=== PATIENT | female | born 1955 | race Caucasian/White ===

== ENCOUNTER → 2018-03-17 15:12 | Outpatient (CLI) | payer OTHER, SELFPAY ==
--- NOTE | 2018-03-17 15:20 | MM_ITS ---
MM Dig screening mamm BI w/CAD ORDERING PHYSICIAN : Jean Rivers MD PATIENT AGE: 62 years GENDER: Female HISTORY: routine screening. No hormones. No new complaints. Noncontributory family history COMPARISON: Bilateral mammogram January 2012 & May 2008 TECHNIQUE: Routine Standard CC & MLO images were obtained. R2 CAD reviewed. FINDINGS: . Inhomogeneous breast with moderate asymmetry RIGHT BREAST:Round density labeled A at the inferior right breast have become apparent and warrants spot views and ultrasound. CAD highlights an area labeled B on the MLO view-this is most likely summation shadow which should be excluded as well with spot views and ultrasound survey. LEFT BREAST:Progression of several areas densities at the left breast since 2012 but most notable is the area labeled X which has 3 components on the MLO view spanning 16 mm. These require spot view and ultrasound. Is also a focal area labeled Y and another labeled Z on the MLO view one of which corresponds with the density at the central breast on cc view. Each of the above areas have developed or become more evident since previous 2012 screening mammogram study . There may be related to cystic elements bilaterally but particularly at the left breast Spot views of both breast to address these areas is well as bilateral ultrasound recommended IMPRESSION: ......... 1.. inhomogeneous with more evident areas of asymmetric density. & new areas of density bilaterally since 2012 These are most evident on the left . 2. Warrants bilateral Spot views, and bilateral breast ultrasound BI-RADS Category: 0 Need Additional Imaging Evaluaiton. RECOMMENDED FOLLOW-UP: IMM - IMMEDIATE FOLLOW-UP RECOMMENDED Bilateral Spot views and bilateral breast ultrasound recommended (A letter has been sent to the patient regarding results of the study.)
--- NOTE | 2018-03-17 15:21 | XR_ITS ---
XR DEXA axial skeleton HISTORY: ITS.REASON: OSTEOPENIA ORDERING PHYSICIAN: Jean Rivers MD PATIENT AGE: 62 years COMPARISON: None FINDINGS: The BMD measured at the AP Spine L1-L4 neck is 0.864 g/cm squared with a T score of T-2.6. This is considered Osteoporotic according to the World Health Organization criteria. Fracture risk is High. Treatment is advised. IMPRESSION: Osteoporosis with high fracture risk. Follow-up recommended March 2019.
== END ==
PROVIDERS: PCP Family Medicine; Visit Provider Family Medicine
DX: Z12.31 Encounter for screening mammogram for malignant neoplasm of breast (principal); N60.19 Diffuse cystic mastopathy of unspecified breast; M85.89 Other specified disorders of bone density and structure, multiple sites
CPT/HCPCS: 77067; 77080

== ENCOUNTER → 2018-06-24 13:29 | Outpatient (CLI) | payer OTHER, SELFPAY ==
--- NOTE | 2018-06-24 13:31 | MM_ITS ---
MM Dig mamm BI DX w/CAD, US breast RT complete, US breast LT complete INDICATION: Follow-up abnormal mammogram ORDERING PHYSICIAN: Jean Rivers MD PATIENT AGE: 62 years COMPARISON: 03/17/2018 TECHNIQUE: Average fibroglandular tissue FINDINGS: Right breast: There is a 5 mm lower inner aspect of the right breast. The margins are somewhat obscured on the MLO view in the MLO spot compression view. Right breast ultrasound: There is a 6 mm cyst at 4:00 near the nipple likely corresponding to the mammographic abnormality. The margins are somewhat irregular with suggestion of some internal septations. A small hypoechoic nodules present 7:00 at 3 mm suggesting a small cyst. The change in the inguinal or cystic changes are reviewed utilizing probably Left breast: Asymmetric density is present in the retroareolar region and in the medial aspect of the left breast. The asymmetric density in the superior aspect of the left breast. Compress out as fibroglandular tissue with some residual increased density in the retroareolar region on the MLO view with multiple nodular opacities in the central medial aspect of the left breast on the cc view. No malignant appearing mass or malignant appearing microcalcification. Left breast ultrasound: Multiple cysts are present including a 5 mm cyst at 12:00 near the nipple and 4 mm cyst at 12:00 near the nipple. 6 mm cyst is present at 6:00 near the nipple 7 mm complex cyst at 9:00 near the nipple. 3 mm cyst at 11:00 near the nipple. IMPRESSION: Bilateral nodular opacities which may correspond to cysts and asymmetric tissue. No convincing evidence of malignancy. Recommend bilateral 6 month mammographic and sonographic follow-up with spot compression views performed on today's exam BI-RADS Category: 3 Probably Benign Finding Short Term Follow-up RECOMMENDED FOLLOW-UP: 6M - 6 MONTH FOLLOW-UP (A letter has been sent to the patient regarding results of the study.)
== END ==
PROVIDERS: PCP Family Medicine; Visit Provider Family Medicine
DX: R92.8 Other abnormal and inconclusive findings on diagnostic imaging of breast (principal)
CPT/HCPCS: 76641; 77066

== ENCOUNTER → 2018-11-14 08:39 | Outpatient (CLI) | payer OTHER, SELFPAY ==
--- NOTE | 2018-11-14 08:40 | FL_ITS ---
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 There is mild lumbar curvature convex left. There is a calcific/sclerotic density overlying the right ilium at 17 mm. This could be due to calcification in the abdomen or overlying soft tissues or a sclerotic lesion of the ilium The colon is visualized from rectum to cecum. There is moderate tortuosity of the hepatic flexure. The colon has an unremarkable appearance. No mucosal abnormalities. No annular constricting lesions or fixed polypoid filling defects. No diverticula. The terminal ileum was not demonstrated. IMPRESSION: 1. Negative air-contrast barium enema 2. Sclerotic density overlies the right ilium possibly due to of bone lesion or overlying soft tissue/abdominal calcific density
== END ==
PROVIDERS: PCP Family Medicine; Visit Provider Surgery
DX: Q43.8 Other specified congenital malformations of intestine (principal)
CPT/HCPCS: 74280

== ENCOUNTER → 2018-11-30 14:00 | Outpatient (CLI) | payer OTHER, SELFPAY ==
--- NOTE | 2018-11-30 14:00 | CT_ITS ---
CT pelvis wo con INDICATION: ITS.REASON: Sclerotic right pelvic/ileal lesion ORDERING PHYSICIAN: Bassam Lozada MD PATIENT AGE: 63 years COMPARISON: 11/14/2018 TECHNIQUE: Axial images are obtained without contrast. Sagittal and coronal reformatted images are reviewed as well. All CT scans at the facility use one or more dose reduction, viz: automated exposure control, ma/kV adjustment per patient size (including targeted exams where dose is matched to indication, i.e. head), or iterative reconstruction technique. FINDINGS: There is a well-circumscribed area of dense sclerosis involving the mid aspect of the right ilium measuring 13 mm transverse, 7 mm AP, and 15 mm cephalad to caudad. This has a benign appearance and may represent a bone island. No other blastic lesions are evident. No lytic lesions apparent. There are minor degenerative changes of the hips and SI joints. No soft tissue masses. Nephrectomy. IMPRESSION: The density noted on the very minimal in the right lower quadrant corresponds to a well-circumscribed blastic lesion of the ilium and may represent bone island. Suggest 6 month radiographic follow-up with plain film to confirm stability.
== END ==
PROVIDERS: PCP Family Medicine; Visit Provider Surgery
DX: M89.9 Disorder of bone, unspecified (principal)
CPT/HCPCS: 72192

== ENCOUNTER → 2018-12-26 12:36 | Outpatient (CLI) | payer OTHER, SELFPAY ==
--- NOTE | 2018-12-26 12:42 | US_ITS ---
MM Dig mamm BI DX w/CAD, US breast RT complete, US breast LT complete INDICATION: Follow-up abnormal mammogram ORDERING PHYSICIAN: Jean Rivers MD PATIENT AGE: 63 years COMPARISON: 06/24/2018, 03/17/2018, 01/22/2012 TECHNIQUE: Standard images performed along with spot compression views and bilateral breast ultrasound FINDINGS: There is average fibroglandular tissue. Right breast: Persistent 6 mm nodular opacity in the 4:00 region of the right breast. The margins of somewhat obscured posteriorly on the spot compression views probably due to overlying fibroglandular tissue. Right breast ultrasound: 6 x 4 mm cystic lesion is present at 4:00. The margins are somewhat irregular. There remains a 7 mm hypoechoic area at 7:00 unchanged. Left breast: Multiple areas of asymmetric density once again noted involving the anterior aspect of the left breast. At least 2 areas do not completely compress out on the spot compression MLO view and the cc view. These measure approximately 5 and 6 mm and are in the medial aspect of the retroareolar region. Left breast ultrasound: 7 mm cyst at 1:00, 4 mm cyst at 5:00, 5 mm cyst at 6:00, 5 mm cyst at 7:00, 6 mm cyst at 9:00, 5 and 4 mm cyst at 11:00 IMPRESSION: Bilateral nodular densities once again noted with complex cyst in the right breast at 4:00 and multiple left breast cysts which may correspond to the mammographic abnormalities. No convincing evidence of malignancy. Recommend continued bilateral 6 month mammographic and sonographic follow-up to confirm one-year stability of the above-mentioned abnormalities BI-RADS Category: 3 Probably Benign Finding Short Term Follow-up RECOMMENDED FOLLOW-UP: 6M - 6 MONTH FOLLOW-UP (A letter has been sent to the patient regarding results of the study.)
== END ==
PROVIDERS: PCP Family Medicine; Visit Provider Family Medicine
DX: R92.8 Other abnormal and inconclusive findings on diagnostic imaging of breast (principal)
CPT/HCPCS: 76641; 77066

== ENCOUNTER → 2019-04-25 09:28 | Outpatient (CLI) | payer OTHER, SELFPAY ==
--- NOTE | 2019-04-25 09:32 | XR_ITS ---
PROCEDURE: XR DEXA AXIAL SKELETON CLINICAL INDICATION: OSTEOPAROSIS COMPARISON: No exams were available for comparison FINDINGS: The L1-L4 density has a bone density of 0.896 grams/centimeters sq with a T-score of -2.4. Lowest density in the hips is in the left femoral neck at 0.686 grams/centimeter sq with a T-score of -2.5 consistent with osteoporosis. IMPRESSION: Osteoporosis with high fracture risk. Treatment is advised. Recommend follow-up exam April 2020 Dictated by: Bishop Barron MD 04/26/2019 07:07 Signed by: <Electronically signed by Bishop Barron MD in [place]> 04/26/2019 07:07
== END ==
PROVIDERS: PCP Family Medicine; Visit Provider Family Medicine
DX: M81.0 Age-related osteoporosis without current pathological fracture (principal)
CPT/HCPCS: 77080

== ENCOUNTER → 2019-06-02 12:41 | Outpatient (CLI) | payer OTHER, SELFPAY ==
--- NOTE | 2019-06-02 12:47 | XR_ITS ---
PROCEDURE: XR PELVIS 1-2V CLINICAL INDICATION: 6 mo follow up from CT COMPARISON: PELWO CT pelvis wo con from 11/30/2018 TECHNIQUE: XR Pelvis AP View FINDINGS: No fracture or dislocation is evident. No significant degenerative change. The well-defined sclerotic lesion is again seen superior aspect of the right innominate bone with a slightly heterogenic appearance typical of a bone island. This is stable unchanged in overall size from the previous CT exam. The pelvis is otherwise unremarkable. IMPRESSION: Stable sclerotic lesion right innominate bone likely a bone island Dictated by: Dr. Jules Liao MD 06/02/2019 13:[address] Jules Liao MD in [place] 06/02/2019 13:19
== END ==
PROVIDERS: PCP Family Medicine; Visit Provider Surgery
DX: M89.9 Disorder of bone, unspecified (principal)
CPT/HCPCS: 72170

== ENCOUNTER → 2019-07-03 12:34 | Outpatient (CLI) | payer OTHER, SELFPAY ==
--- NOTE | 2019-07-03 12:41 | US_ITS ---
PROCEDURE: MM DIG MAMM BI DX W/CAD CLINICAL INDICATION: ABNORMAL MAMM Follow-up abnormal mammogram the the the the the a the the the COMPARISON: DIGMAMMS MAMMOGRAM SCREEN-OCCUPATIONAL THERAPIST PER DIEM N/C from 06/05/2008 [facility] DIGITAL MAMM-SCREEN BILATERAL from 01/22/2012 [facility] MM Dig screening mamm BI w/CAD from 03/17/2018 [facility] MM Dig mamm BI DX w/CAD from 06/24/2018 [facility] MM Dig mamm BI DX w/CAD from 12/26/2018 BREASTRT US breast RT complete from 12/26/2018 BREASTLT US breast LT complete from 12/26/2018 US BREAST LT COMPLETE from 07/03/2019 US BREAST RT COMPLETE from 07/03/2019 TECHNIQUE: Standard images performed along with spot compression views and bilateral breast ultrasound FINDINGS: There is average fibroglandular tissue. Benign-appearing nodular opacities are once again noted on both sides and are not significantly changed. No malignant appearing mass or malignant-appearing microcalcification there is a 6 mm nodular opacity in the lower inner aspect of the right breast corresponding to a cyst by ultrasound. Right breast ultrasound: 5 x 5 mm cyst at 4 o'clock with some internal septations not significantly changed. 4 mm cyst at 7 o'clock not significantly changed. No suspicious sonographic nodules evident. Left breast ultrasound: There is a complicated 7 mm cyst at 1 o'clock. 3 mm cyst at 5 o'clock. 5 mm cyst at 9 o'clock. There are 2 4 mm cyst at 11 o'clock. No suspicious sonographic abnormalities evident. IMPRESSION: BI-RAD Category: 2 Benign Finding(s) FOLLOW-UP: 1YR 1 Year Follow-up (A letter has been sent to the patient regarding results of the study.) Dictated by: Bishop Barron MD 07/10/2019 08:11 Electronically signed by Bishop Barron MD in [place] 07/10/2019 08:11
== END ==
PROVIDERS: PCP Family Medicine; Visit Provider Family Medicine
DX: N60.12 Diffuse cystic mastopathy of left breast (principal); N60.11 Diffuse cystic mastopathy of right breast
CPT/HCPCS: 76641; 77066

== ENCOUNTER → 2020-01-03 14:43 | Outpatient (CLI) | payer SELFPAY ==
--- NOTE | 2020-01-03 14:53 | XR_ITS ---
PROCEDURE: XR TOE LT MIN 2V CLINICAL INDICATION: HYPERURICEMIA Pain COMPARISON: No exams were available for comparison FINDINGS: No fracture or dislocation. No lytic or blastic change. There is normal mineralization. The joint spaces are well-preserved. No significant degenerative/arthritic changes. No erosive changes evident. Other findings:No gouty tophi parent IMPRESSION: No acute findings. Dictated by: Bishop Barron MD 01/03/2020 15:28 Electronically signed by Bishop Barron MD in [place] 01/03/2020 15:28
== END ==
PROVIDERS: PCP Family Medicine; Visit Provider Family Medicine
DX: E79.0 Hyperuricemia without signs of inflammatory arthritis and tophaceous disease (principal)
CPT/HCPCS: 73660

== ENCOUNTER → 2020-01-31 15:06 | Outpatient (CLI) | payer MEDICARE, SELFPAY ==
--- NOTE | 2020-01-31 15:15 | XR_ITS ---
PROCEDURE: XR FOOT LT MIN 3V CLINICAL INDICATION: LT TOE PAIN Left elbow pain and swelling COMPARISON: FTR3 FOOT-RT-3 VIEWS from 08/14/2015 FTR3 FOOT-RT-3 VIEWS from 09/14/2015 XR TOE LT MIN 2V from 01/03/2020 FINDINGS: No fracture or dislocation. No lytic or blastic change. There is normal mineralization. The joint spaces are well-preserved. No significant degenerative/arthritic changes. No erosive changes evident. Other findings:Well-circumscribed calcifications present along the anterior aspect of the talus distally IMPRESSION: No acute findings. Dictated by: Bishop Barron MD 01/31/2020 16:47 Electronically signed by Bishop Barron MD in [place] 01/31/2020 16:47
== END ==
PROVIDERS: PCP Family Medicine; Visit Provider Family Medicine
DX: M79.675 Pain in left toe(s) (principal)
CPT/HCPCS: 73630

== ENCOUNTER → 2020-02-12 15:41 | Outpatient (CLI) | payer OTHER, MEDICARE, SELFPAY ==
--- NOTE | 2020-02-12 15:47 | XR_ITS ---
PROCEDURE: XR LUMBAR SPINE MIN 4V CLINICAL INDICATION: LOW BACK PAIN COMPARISON: BEAC FL barium enema w air contrast from 11/14/2018 XR PELVIS 1-2V from 06/02/2019 FINDINGS: Minimal lumbar curvature convex left. No acute fracture or dislocation. Normal alignment. The disc spaces are well preserved. Mild facet arthritic changes are present at L5-S1. There is a sclerotic density overlying the right ilium centrally measuring 16 mm and is not significantly changed from 11/14/2018 and may be due to a bone island. IMPRESSION: Mild degenerative changes of the lumbar spine. No acute finding No change sclerotic lesion of the right ilium which may be due to a bone island Dictated by: Bishop Barron MD 02/12/2020 16:29 Electronically signed by Bishop Barron MD in [place] 02/12/2020 16:29
== END ==
PROVIDERS: PCP Family Medicine; Visit Provider Family Medicine
DX: M54.5 Low back pain (principal)
CPT/HCPCS: 72110

== ENCOUNTER → 2020-04-24 10:53 | Outpatient (CLI) | payer OTHER, MEDICARE, SELFPAY ==
[2020-04-24 11:38] LABS: Basophils # 0.1 K/mm3 (0-0.2); Eosinophils # 0.1 K/mm3 (0.0-0.4); Eosinophils % 1.8 % (0.1-12.0); Hematocrit 34.7 % (37.0-47.0); Hemoglobin 11.9 g/dL (12.2-16.2); Lymphocytes # 2.4 K/mm3 (0.7-4.5); Lymphocytes % 38.8 % (10-50); Mean Corpuscular HGB Conc 34.3 g/dL (31.8-35.4); Mean Corpuscular Hemoglobin 30.4 pg (27.0-31.2); Mean Corpuscular Volume 88.6 fl (81-99); Mean Platelet Volume 7.6 fl (7.4-10.4); Monocytes # 0.2 K/mm3 (0.1-1.0); Neutrophils # 3.3 K/mm3 (1.8-7.8); Neutrophils % 54.4 % (37.0-80.0); Platelet Count 240 K/mm3 (142-424); Red Blood Count 3.92 M/mm3 (4.20-5.40); Red Cell Distribution Width 13.2 % (11.5-17.5); White Blood Count 6.1 K/mm3 (4.8-10.8)
== END ==
PROVIDERS: PCP Family Medicine; Visit Provider Nurse Practitioner Family
DX: Z20.828 Contact with and (suspected) exposure to other viral communicable diseases (principal)
CPT/HCPCS: 36415; 85025; U0003

== ENCOUNTER 2020-12-25 14:00 | Outpatient (RCR) | payer OTHER, MEDICARE, SELFPAY | END 2020-12-25 14:05 | disposition home or self-care (01) | LOC: OT 14:00 | PROVIDERS: Visit Provider Internal Medicine Rheumatology | DX: E11.618 Type 2 diabetes mellitus with other diabetic arthropathy (principal); M25.642 Stiffness of left hand, not elsewhere classified | CPT/HCPCS: 97010; 97014; 97018; 97110; 97140; 97164; 97165; G0283 ==

== ENCOUNTER → 2020-12-30 08:11 | Outpatient (CLI) | payer OTHER, MEDICARE, SELFPAY ==
--- NOTE | 2020-12-30 08:14 | US_ITS ---
PROCEDURE: US ABDOMEN LIMITED CLINICAL INDICATION: RUQ PAIN COMPARISON: No exams were available for comparison FINDINGS: PANCREAS: Unremarkable. No obvious mass or abnormal fluid collection. No ductal dilatation LIVER: No focal liver lesions demonstrated. Homogeneous echogenicity. No intrahepatic biliary ductal dilatation evident. There is appropriate direction of blood flow within a non dilated portal vein RIGHT KIDNEY: Unremarkable. Normal size and echogenicity. No hydronephrosis GALLBLADDER: Gallstones are present. No gallbladder wall thickening, pericholecystic fluid, or biliary dilatation. Common bile duct is normal at 2 mm IMPRESSION: Cholelithiasis Dictated by: Bishop Barron MD 12/30/2020 18:46 Bishop Barron MD in [place] 12/30/2020 18:46
== END ==
PROVIDERS: PCP Family Medicine; Visit Provider Family Medicine
DX: R10.11 Right upper quadrant pain (principal)
CPT/HCPCS: 76705

== ENCOUNTER → 2021-01-08 14:53 | Outpatient (CLI) | payer OTHER, MEDICARE, SELFPAY ==
[2021-01-08 15:22] LABS: Basophils % 0.6 % (0.1-2.0); Eosinophils # 0.2 K/mm3 (0.0-0.4); Eosinophils % 3.4 % (0.1-12.0); Hematocrit 33.2 % (37.0-47.0); Hemoglobin 11.1 g/dL (12.2-16.2); Lymphocytes % 28.8 % (10-50); Mean Corpuscular HGB Conc 33.5 g/dL (31.8-35.4); Mean Corpuscular Hemoglobin 29.3 pg (27.0-31.2); Mean Corpuscular Volume 87.5 fl (81-99); Monocytes # 0.3 K/mm3 (0.1-1.0); Monocytes % 3.7 % (1.7-9.3); Neutrophils # 4.3 K/mm3 (1.8-7.8); Neutrophils % 63.5 % (37.0-80.0); Platelet Count 317 K/mm3 (142-424); Red Cell Distribution Width 14.4 % (11.5-17.5); White Blood Count 6.8 K/mm3 (4.8-10.8)
--- NOTE | 2021-01-08 15:24 | ECG_ITS ---
APPROVED REPORT Exam: Resting ECG HR:69 bpm ECG Measurements Heart Rate 69 AXES TX 184 P 62 QRSd 86 QRS 36 QT 390 T 74 QTc 417 Conclusion Normal sinus rhythm Normal ECG Electronically signed by : Vasu Forde, 01/09/2021 21:18:09
[2021-01-08 15:33] LABS: Alanine Aminotransferase 21 U/L (12-78); Albumin Level 4.8 g/dl (3.5-5.0); Alkaline Phosphatase 65 U/L (38-126); Anion Gap 13.1 mEq/L (5-15); Aspartate Amino Transferase 28 U/L (14-36); Bilirubin,Total 0.3 mg/dl (0.2-1.3); Blood Urea Nitrogen 24 mg/dl (7-17); Calcium 10.1 mg/dl (8.4-10.2); Carbon Dioxide 30 mmol/L (22.0-30.0); Chloride 99 mmol/L (98-107); Estimated Glomerular Filt Rate 72 ml/min (>60); GFR (African American) 87 ML/MIN (>60); Globulin 2.4 g/dL (1.3-3.2); Glucose 173 mg/dl (74-100); Potassium 4.1 mmoL/L (3.5-5.1); Sodium 138 mmol/L (136-145); Total Protein,Serum 7.2 g/dl (6.3-8.2)
[2021-01-08 15:52] LABS: Coronavirus 19 IgG Antibody Positive (Negative); Coronavirus 19 IgM Antibody Negative (Negative)
== END ==
PROVIDERS: Visit Provider Surgery
DX: Z01.812 Encounter for preprocedural laboratory examination (principal); Z20.822 Contact with and (suspected) exposure to COVID-19; R10.11 Right upper quadrant pain; K80.20 Calculus of gallbladder without cholecystitis without obstruction
CPT/HCPCS: 36415; 80053; 85025; 86328; 93005

== ENCOUNTER 2021-01-10 09:58 | Day surgery (SDC) | payer OTHER, MEDICARE, SELFPAY ==
[2021-01-09 09:20] VITALS: BMI 24.3
[2021-01-10] VITALS (11 sets, daily range): BP systolic 119–143; BP diastolic 45–69; PULSE 66–94; RESP 16–18; TEMP 36.2–36.6; O2SAT 92–100
[2021-01-10 11:26] LABS: POC Glucose,Bedside 107 (70-110)
--- NOTE | 2021-01-10 13:20 | HMH.ANESCL ---
[facility] Anesthesia Checklist - Patient Identification Patient Identification: Arm Band - Structural Data Admitted From: Home Planned Operative Procedure/s: Lap. cholecystectomy Consent for Planned Operative Procedure(s) Verified: Yes - NPO Status Verified Time NPO: 00:00 - Additional verifications Anesthesia Reactions: No Hx Blood Transfusions: No Blood Transfusion Reaction: No - Airway Assessment C-Spine Mobility Assessed: Yes TMJ Mobility Assessed: Yes Dentition: Good Dentition - Neurological Assessment Level of Consciousness: Awake Hx Seizures: No Numbness or tingling in extremities: No - Anesthesia Plan Anesthesia Risk discussed: Yes Anesthesia Plan: Verified ASA Class: III Anesthesia Type: General [facility] History I have reviewed the patient's past medical history: Yes Medical History: Reports:: Anxiety, Cancer (skin ca), Depression, Diabetes Mellitus Type 2, Hypertension Denies:: Diabetes Mellitus Type 1, Internal Pacemaker, Lung Disease, MRSA, Seizures *Have you ever received a pneumonia vaccine?: No *Have you received a flu vaccine this season?: No Other Medical History: Reports: Anemia. Denies: Blood Transfusion Reaction Anesthesia experience/problems:: None Laterality Cases: Bilateral: Cataract Other Surgeries: Yes: Cancer Surgery, Colonoscopy, Other. No: Pacemaker Amputation: No Fractures: No - *Social History Last grade of school completed: High school graduate Smoking Status: Never smoker Alcohol Intake: never Substance Use Type: denies use *Occupational Status:: employed Housing: house Household Members: spouse *Travel in the last 8 weeks: None - Psychiatric History Pschychiatric History:: Reports:: Anxiety, Depression Family Hx:: Diabetes, Hypertension, Cancer
--- NOTE | 2021-01-10 14:45 | P.OP_ITS ---
Date of procedure: 01/10/21 Pre-op Diagnosis:: Symptomatic cholelithiasis Post-op Diagnosis:: Chronic calculus cholecystitis Procedure performed:: Laparoscopic cholecystectomy Surgeon:: Bassam Lozada MD Anesthesia: GETAnahy Estimated blood loss (mL): 15 Operative findings:: Infundibular thickening Operative note:: After informed consent was obtained, the patient was taken to the operating room and placed in the supine position. General anesthesia was induced and the abdomen was prepped and draped in a sterile fashion. After infiltration with l ocal anesthetic an infraumbilical incision was made. A Veress needle was placed in position. The abdomen was insufflated. A 5 mm optical trocar was placed in position. Under direct visualization, a 12 mm trocar was placed in the subxiphoid position and 2 additional 5 mm trocars were placed in the right upper quadrant. The gallbladder was elevated up and over the liver margin. The tissue around the cystic duct was carefully dissected. 3 clips were placed proximally and the duct was transected with harmonic karen. Harmonic karen were then utilized to dissect the gallbladder away from the liver margin with careful attention to the control of the cystic artery. The gallbladder was placed in a retrieval bag and removed through the subxiphoid trocar site. The right upper quadrant was thoroughly irrigated. No active bleeding or bile leak was noted. Fascia at the subxiphoid trocar site was reapproximated utilizing the NeoClose device. The remaining trocars were removed. All wounds were irrigated and skin was closed with 4-0 Monocryl in a subcuticular fashion. Steri-Strips were applied. The patient's anesthetic agents were reversed and extubation was completed prior to transfer to recovery in stable condition. Condition: stable Disposition: PACU Specimens:: Gallbladder and contents Complications:: No immediate
--- NOTE | 2021-01-10 14:54 | HMH.ANESI ---
[facility] Anesthesia Record Part I Intake, IV Amount: 800 Estimated blood loss (mL): 10 Urine output (mL): 0 Blood Pressure: 134/68 SaO2: 94 Pulse Rate: 82 Respiratory Rate: 16 Temperature: 97.2 F Patient is:: Drowsy
[2021-01-10 15:09] LABS: POC Glucose,Bedside 141 (70-110)
--- NOTE | 2021-01-13 08:24 | HMH.ANESII ---
[facility] Anesthesia Record Part II Discharge Time: 15:21 Destination: Surgical Day Care (OP Surgery) PACU nurse assessment reviewed?: Yes Patient Condition:: Good Anesthesia Complications:: None Swallowing reflex intact?: Yes Cyanosis?: No Blood Pressure: 132/64 Pulse Rate: 94 Temperature: 97.2 F Mental Status: Alert & Oriented Pain level:: 0 Nausea and/or vomitting:: None Intake, IV Amount: 0
[2021-01-13 08:25] VITALS: BP 132/64; PULSE 94; TEMP 36.2
== END 2021-01-10 16:15 | disposition home or self-care (01) ==
LOC: OR 10:00
PROVIDERS: PCP Family Medicine; Visit Provider Surgery
PROC: 0FT44ZZ Resection of Gallbladder, Percutaneous Endoscopic Approach (ICD-10-PCS; CPT 47562; principal; 2021-01-10 11:45)
DX: K80.10 Calculus of gallbladder with chronic cholecystitis without obstruction; F41.9 Anxiety disorder, unspecified; F32.9 Major depressive disorder, single episode, unspecified; E11.9 Type 2 diabetes mellitus without complications; I10 Essential (primary) hypertension; Z85.828 Personal history of other malignant neoplasm of skin; Z83.3 Family history of diabetes mellitus; Z82.49 Family history of ischemic heart disease and other diseases of the circulatory system; Z80.9 Family history of malignant neoplasm, unspecified; Z79.84 Long term (current) use of oral hypoglycemic drugs; Z79.899 Other long term (current) drug therapy
CPT/HCPCS: 47562; 82962; 96374; J2405

== ENCOUNTER → 2021-01-20 13:12 | Outpatient (CLI) | payer OTHER, MEDICARE, SELFPAY ==
--- NOTE | 2021-01-20 13:17 | XR_ITS ---
PROCEDURE: XR CHEST 2V CLINICAL HISTORY: RT SIDED THORACIC PAIN COMPARISON: CR CXR CHEST(2 VIEWS-NOT PORTABLE) from 12/14/2016 FINDINGS: The cardiomediastinal silhouette and pulmonary vascularity are within normal limits. The lungs are clear without infiltrates, suspicious nodules, or pleural effusions. Calcified granuloma in the left lower zone. Background of minor chronic interstitial changes. No acute bony abnormalities. IMPRESSION: No focal consolidation or pleural effusions. Dictated by: Gypsy Garces 01/20/2021 16:10 Gypsy Garces in [place] 01/20/2021 16:10
--- NOTE | 2021-01-20 13:17 | XR_ITS ---
PROCEDURE: XR THORACIC SPINE 3V CLINICAL INDICATION: RT SIDED THORACIC PAIN COMPARISON: No exams were available for comparison FINDINGS: No acute fractures or traumatic subluxation. Bone density is normal. Multilevel minor degenerative changes with endplate sclerosis. Minor superior endplate compression deformity of the T12 vertebral body, age indeterminate. Paravertebral soft tissues and the visualized lungs are clear. IMPRESSION: Degenerative changes of the thoracic spine. Superior endplate compression deformity of the T12 vertebral body. Dictated by: Gypsy Garces 01/20/2021 16:51 Gypsy Garces in [place] 01/20/2021 16:51
== END ==
PROVIDERS: PCP Family Medicine; Visit Provider Family Medicine
DX: M54.6 Pain in thoracic spine (principal)
CPT/HCPCS: 71046; 72072

== ENCOUNTER → 2021-05-12 17:50 | Outpatient (CLI) | payer OTHER, MEDICARE, SELFPAY ==
[2021-05-12 19:16] LABS: Chloride 98 mmol/L (98-107); Potassium 4.2 mmoL/L (3.5-5.1); Sodium 138 mmol/L (136-145)
[2021-05-12 19:18] LABS: Blood Urea Nitrogen 15 mg/dl (7-17); Estimated Glomerular Filt Rate 72 ml/min (>60); GFR (African American) 87 ML/MIN (>60)
[2021-05-12 19:19] LABS: Alanine Aminotransferase 17 U/L (12-78); Albumin Level 4.2 g/dl (3.5-5.0); Albumin/Globulin Ratio 1.7 (1.1-1.8); Alkaline Phosphatase 69 U/L (38-126); Anion Gap 14.2 mEq/L (5-15); Aspartate Amino Transferase 25 U/L (14-36); Bilirubin,Total 0.2 mg/dl (0.2-1.3); Calcium 9.4 mg/dl (8.4-10.2); Carbon Dioxide 30 mmol/L (22.0-30.0); Globulin 2.5 g/dL (1.3-3.2); Glucose 82 mg/dl (74-100); Total Protein,Serum 6.7 g/dl (6.3-8.2)
[2021-05-12 19:28] LABS: Erythrocyte Sedimentation Rate 70 mm/hr (0-30)
[2021-05-12 19:55] LABS: Thyroid Stimulating Hormone 2.11 uIU/mL (0.465-4.68)
== END ==
PROVIDERS: Visit Provider Family Medicine
DX: R43.9 Unspecified disturbances of smell and taste (principal)
CPT/HCPCS: 80053; 84443; 85651

== ENCOUNTER → 2021-10-04 11:39 | Outpatient (CLI) | payer OTHER, MEDICARE, SELFPAY | PROVIDERS: PCP Family Medicine; Visit Provider Surgery | DX: Z01.812 Encounter for preprocedural laboratory examination (principal); Z11.52 Encounter for screening for COVID-19; Z12.11 Encounter for screening for malignant neoplasm of colon | CPT/HCPCS: C9803; U0003; U0005 ==

== ENCOUNTER 2021-10-07 07:15 | Day surgery (SDC) | payer OTHER, MEDICARE, SELFPAY ==
[2021-10-03 13:34] VITALS: BMI 21.4
[2021-10-07 07:33] VITALS: BP 140/69; PULSE 61; RESP 18; TEMP 36.4; O2SAT 100
--- NOTE | 2021-10-07 07:55 | P.PN_ITS ---
[facility] Anesthesia Checklist - Structural Data Admitted From: Home Planned Operative Procedure/s: colonoscopy Consent for Planned Operative Procedure(s) Verified: Yes - Additional verifications Anesthesia Reactions: No Hx Blood Transfusions: No Blood Transfusion Reaction: No - Airway Assessment C-Spine Mobility Assessed: Yes TMJ Mobility Assessed: Yes Dentition: Good Dentition - Neurological Assessment Level of Consciousness: Awake, Alert, Appropriate - Anesthesia Plan Anesthesia Risk discussed: Yes Anesthesia Plan: Verified ASA Class: II Anesthesia Type: MAC [facility] History I have reviewed the patient's past medical history: Yes Medical History: Reports:: Anxiety, Depression, Hyperlipidemia, Hypertension Denies:: Cancer, Diabetes Mellitus Type 1, Diabetes Mellitus Type 2, Internal Pacemaker, Lung Disease, MRSA, Seizures *Have you ever received a pneumonia vaccine?: Yes *Have you received a flu vaccine this season?: Yes Other Medical History: Reports: Anemia. Denies: Blood Transfusion Reaction Anesthesia experience/problems:: none Other Surgeries: Yes: Cancer Surgery, Cholecystectomy, Colonoscopy, Other. No: Pacemaker Amputation: No Fractures: No - *Social History Last grade of school completed: High school graduate Smoking Status: Never smoker Alcohol Intake: never Substance Use Type: denies use *Occupational Status:: retired Housing: house Household Members: spouse *Travel in the last 8 weeks: None - Psychiatric History Pschychiatric History:: Reports:: Anxiety, Depression Family Hx:: Diabetes, Hypertension, Cancer
[2021-10-07 08:47] VITALS: O2SAT 97
--- NOTE | 2021-10-07 09:23 | HMH.SCOPE ---
- Procedure: Date: 10/07/21 Patient Date of :: 1955 Procedure Performed:: Colonoscopy with polypectomy Indications:: History of colon polyps Note that patient underwent her most recent colonoscopy July 2018. Fairly severe tortuosity made visualization somewhat limited. She did have an adenoma removed from the cecum. A follow-up barium enema revealed no fixed mass lesion or stricture. Performing Provider:: Bassam Lozada MD Referring Provider:: . Sedation:: Monitored anesthesia care Procedure:: After informed consent was obtained the patient was taken to the endoscopy suite. Sedation ensued after the patient was transferred to the left lateral decubitus position. Pulse, blood pressure, and oxygen saturation were monitored throughout the procedure. Digital rectal exam revealed no significant abnormality. The colonoscope was placed in position. The entire colon was evaluated. The colonoscope was carefully removed and the patient was transferred to recovery in stable condition. Please see findings and specimens below for detail. Findings:: Bowel preparation relatively fair Mild hemorrhoidal cushions/tags Fairly significant tortuosity and spasticity Large complex sessile/lobulated ridge polyp of the right colon removed in a piecemeal fashion utilizing snare and cold biopsy forceps Note: Complex lobulated sessile polyp present along the right colon with length approaching 40% diameter was tattooed for future reference Specimens:: Large sessile/lobulated complex ridge polyp of the right colon (approximately 40% diameter) Recommendations:: Repeat colonoscopy in 3-6 months for close evaluation of complex right colon polyp Complications:: No immediate Estimated blood obtained (mL): 1
[2021-10-07 09:25] VITALS: BP 114/57; PULSE 56; RESP 16; TEMP 36.4; O2SAT 96
[2021-10-07 09:35] VITALS: BP 123/64; PULSE 56; RESP 16; O2SAT 98
[2021-10-07 10:00] VITALS: BP 137/69; PULSE 55; RESP 16; O2SAT 98
== END 2021-10-07 10:00 | disposition home or self-care (01) ==
LOC: OUTP 07:18
PROVIDERS: PCP Family Medicine; Visit Provider Surgery
PROC: 0DJD8ZZ Inspection of Lower Intestinal Tract, Via Natural or Artificial Opening Endoscopic (ICD-10-PCS; CPT 45385; principal; 2021-10-07 08:30)
DX: Z12.11 Encounter for screening for malignant neoplasm of colon (principal); K58.9 Irritable bowel syndrome, unspecified; K64.9 Unspecified hemorrhoids; K56.2 Volvulus; K63.5 Polyp of colon; Z86.010 Personal history of colon polyps; F41.9 Anxiety disorder, unspecified; F32.9 Major depressive disorder, single episode, unspecified; E78.5 Hyperlipidemia, unspecified; D64.9 Anemia, unspecified; Z83.3 Family history of diabetes mellitus; Z82.49 Family history of ischemic heart disease and other diseases of the circulatory system; Z80.9 Family history of malignant neoplasm, unspecified
CPT/HCPCS: 45385

== ENCOUNTER → 2021-12-25 08:13 | Outpatient (CLI) | payer OTHER, MEDICARE, SELFPAY ==
--- NOTE | 2021-12-25 08:28 | XR_ITS ---
FINAL REPORT TECHNIQUE: Bone densitometry calculations of the lumbar spine and both hips were obtained. CLINICAL HISTORY: .post menopausal COMPARISON: April 25, 2019 FINDINGS: DEXA BONE DENSITY AXIAL SKELETON Using L1-4, the bone mineral density of the spine is 0.780 g/cm2, corresponding to T-score of -2.4. Previously measured 0.896 g/cm2 corresponding to a T-score -2.4 Using the left hip, the bone mineral density of the femoral neck is 0.579 g/cm2, corresponding to a T-score of -2.4. Previously measured 0.686 g/cm2 corresponding to a T-score -2.5. Using the right hip, the bone mineral density of the femoral neck is 0.597 g/cm2, corresponding to a T-score of -2.3. Previously measured 0.746 g/cm2 corresponding to a T-score of -2.1. NOTE: T-score: Standard deviation compared with peak bone mass of young adult mean. *Following the recommendations of the International Society of Bone densitometry, classification of hip BMD is based on the lower of two T-scores; total hip or femoral neck. IMPRESSION: Diminished bone mineral density of the lumbar spine and each hip consistent with osteopenia. Reviewed, Interpreted and Dictated by Juanjo Flores MD Transcribed by Siria Baker Authenticated by Juanjo Flores MD on 12/25/2021 10:55:43 AM [facility]
--- NOTE | 2021-12-25 08:28 | MM_ITS ---
PROCEDURE INFORMATION: Exam: MG Bilateral Screening 3D Mammography Exam date and time: 12/25/2021 8:24 AM Age: 66 years old Clinical indication: Screening examination. No family history of breast cancer. TECHNIQUE: Imaging protocol: Bilateral Screening tomosynthesis and 2D mammography including computer-aided detection (CAD) when performed. COMPARISON: 1. MG MM DIG MAMM BI DX W/CAD 07/03/2019 1:15 PM 2. MG DXBI MM Dig mamm BI DX w/CAD 12/26/2018 1:12 PM 3. MG DXBI MM Dig mamm BI DX w/CAD 06/24/2018 1:44 PM 4. MG SCBI MM Dig screening mamm BI w/CAD 03/17/2018 3:38 PM FINDINGS: MAMMOGRAPHY: Breast composition: The breast tissue is composed of scattered areas of fibroglandular density. Mass: No suspicious mass. Architectural distortion: None. Calcifications: No suspicious calcifications. Asymmetric density: None. Skin thickening: None. Axillary adenopathy: None. IMPRESSION: No mammographic evidence of malignancy. Annual screening is recommended unless otherwise clinically indicated. ASSESSMENT: BI-RADS Category 2: Benign
== END ==
PROVIDERS: PCP Family Medicine; Visit Provider Family Medicine
DX: Z12.31 Encounter for screening mammogram for malignant neoplasm of breast (principal); Z78.0 Asymptomatic menopausal state
CPT/HCPCS: 77063; 77067; 77080

== ENCOUNTER → 2022-02-21 11:03 | Outpatient (CLI) | payer OTHER, MEDICARE, SELFPAY | PROVIDERS: PCP Family Medicine; Visit Provider Surgery | DX: U07.1 COVID-19 (principal) | CPT/HCPCS: C9803; U0003; U0005 ==

== ENCOUNTER 2022-03-24 06:26 | Day surgery (SDC) | payer OTHER, MEDICARE, SELFPAY ==
[2022-03-23 09:38] VITALS: BMI 23.2
[2022-03-24 06:51] VITALS: BP 109/70; PULSE 55; RESP 18; TEMP 36.2; O2SAT 99
--- NOTE | 2022-03-24 07:23 | HMH.ANESCL ---
[facility] Anesthesia Checklist - Patient Identification Patient Identification: Arm Band - Structural Data Admitted From: Home Planned Operative Procedure/s: Colonoscopy Consent for Planned Operative Procedure(s) Verified: Yes - NPO Status Verified Time NPO: 02:30 (Prep) - Additional verifications Anesthesia Reactions: No Hx Blood Transfusions: No Blood Transfusion Reaction: No - Airway Assessment C-Spine Mobility Assessed: Yes TMJ Mobility Assessed: Yes Dentition: Good Dentition - Neurological Assessment Level of Consciousness: Awake Hx Seizures: No Numbness or tingling in extremities: No - Anesthesia Plan Anesthesia Risk discussed: Yes Anesthesia Plan: Verified ASA Class: II Anesthesia Type: MAC [facility] History I have reviewed the patient's past medical history: Yes Medical History: Reports:: Anxiety, Depression, Hyperlipidemia, Hypertension Denies:: Cancer, Diabetes Mellitus Type 1, Diabetes Mellitus Type 2, Internal Pacemaker, Lung Disease, MRSA, Seizures *Have you ever received a pneumonia vaccine?: Yes *Have you received a flu vaccine this season?: Yes Other Medical History: Reports: Anemia. Denies: Blood Transfusion Reaction Anesthesia experience/problems:: None Other Surgeries: Yes: Cancer Surgery, Cholecystectomy, Colonoscopy, Other. No: Pacemaker Amputation: No Fractures: No - *Social History Last grade of school completed: High school graduate Smoking Status: Never smoker Alcohol Intake: never Substance Use Type: denies use *Occupational Status:: employed Housing: house Household Members: spouse, family *Travel in the last 8 weeks: None - Psychiatric History Pschychiatric History:: Reports:: Anxiety, Depression Family Hx:: Diabetes, Hypertension, Cancer
[2022-03-24 07:24] VITALS: O2SAT 99
[2022-03-24 08:06] VITALS: BP 145/74; PULSE 64; RESP 18; TEMP 36.1; O2SAT 99
--- NOTE | 2022-03-24 08:06 | P.PCN_ITS ---
- Procedure: Date: 03/24/22 Patient Date of :: 1955 Procedure Performed:: Colonoscopy with polypectomy by means other than snare Indications:: History of colon polyps History of multiple colon polyps with very large sessile adenomatous polyp of the right colon excised earlier this year (excised by way of snare with tattoo placement). Performing Provider:: Bassam Lozada MD Referring Provider:: . Sedation:: Monitored anesthesia care Procedure:: After informed consent was obtained the patient was taken to the endoscopy suite. Sedation ensued after the patient was transferred to the left lateral decubitus position. Pulse, blood pressure, and oxygen saturation were monitored throughout the procedure. Digital rectal exam revealed no significant abnormality. The colonoscope was placed in position. The entire colon was evaluated. The colonoscope was carefully removed and the patient was transferred to recovery in stable condition. Please see findings and specimens below for detail. Findings:: Bowel preparation relatively fair Moderate spasticity and tortuosity Small areas of residual adenomatous-appearing change adjacent to right colon tattoo (prior polypectomy site) Specimens:: Residual polypoid change adjacent to tattoo in right colon (multiple small lesions excised by way of cold biopsy forceps) Recommendations:: Timing of repeat colonoscopy is pending pathology but will likely be between 6- 12 months secondary to need for ongoing close evaluation of right colonic polypectomy site. Complications:: No immediate Estimated blood obtained (mL): 1
[2022-03-24 08:16] VITALS: BP 138/63; PULSE 60; RESP 18; TEMP 36.1; O2SAT 99
[2022-03-24 08:26] VITALS: BP 143/89; PULSE 56; RESP 18; TEMP 36.1; O2SAT 97
[2022-03-24 08:44] VITALS: BP 150/76; PULSE 54; RESP 18; TEMP 36.1; O2SAT 97
== END 2022-03-24 08:44 | disposition home or self-care (01) ==
LOC: OUTP 06:31
PROVIDERS: PCP Family Medicine; Visit Provider Surgery
PROC: 0DJD8ZZ Inspection of Lower Intestinal Tract, Via Natural or Artificial Opening Endoscopic (ICD-10-PCS; CPT 45380; principal; 2022-03-24 07:30)
DX: Z12.11 Encounter for screening for malignant neoplasm of colon (principal); K63.5 Polyp of colon; I10 Essential (primary) hypertension; E78.5 Hyperlipidemia, unspecified; F32.A Depression, unspecified; F41.9 Anxiety disorder, unspecified; D64.9 Anemia, unspecified
CPT/HCPCS: 45380

== ENCOUNTER 2022-11-17 06:21 | Day surgery (SDC) | payer OTHER, MEDICARE, SELFPAY ==
[2022-11-17 06:45] VITALS: BP 130/54; PULSE 64; RESP 18; TEMP 36.3; O2SAT 98; BMI 25.0
--- NOTE | 2022-11-17 06:56 | HMH.SCOPE ---
Procedure: Date: 11/17/22 Patient Date of :: 1955 Procedure Performed:: Colonoscopy with polypectomy by means other than snare Indications:: History of colon polyps Note: September 2021 a large complex adenoma of the right colon was excised/tattooed. Short-term repeat colonoscopy in March 2022 revealed small residual adenomas adjacent to tattoo. Performing Provider:: Bassam Lozada MD Referring Provider:: . Sedation:: Monitored anesthesia care Procedure:: After informed consent was obtained the patient was taken to the endoscopy suite. Sedation ensued after the patient was transferred to the left lateral decubitus position. Pulse, blood pressure, and oxygen saturation were monitored throughout the procedure. Digital rectal exam revealed no significant abnormality. The colonoscope was placed in position. The entire colon was evaluated. The colonoscope was carefully removed and the patient was transferred to recovery in stable condition. Please see findings and specimens below for detail. Findings:: Tiny residual polypoid tissue along scar (prior right colon polypectomy) Specimens:: Persistent polypoid tissue along scar status post prior polypectomy (right colon)?cold biopsy forceps Recommendations:: Follow-up pathology Likely repeat colonoscopy in approximately 1 year or close continued evaluation of polypectomy site/tattoo Complications:: No immediate Estimated blood obtained (mL): 1
--- NOTE | 2022-11-17 07:07 | P.PN_ITS ---
[facility] Disclaimer: The information contained in this section may have been updated after the patient was seen, as this information can be updated by other users. Medical History Allergies Depression History of anemia History of COVID-19 Hypertension Osteoporosis Pneumonia Skin cancer Surgical History History of cholecystectomy History of colonoscopy Hx of hysterectomy, total Family History Father Melanoma Sister Lung cancer Kidney disease Diabetes Social History Smoking Status: Never smoker alcohol intake: never substance use type: denies use current occupational status: employed Travel in the last 8 weeks: None household members: spouse and family housing: house current occupation: [employer] current occupational exposures/hazards: No caffeine: Yes [facility] Anesthesia Checklist Patient Identification Patient Identification: Arm Band and Verbal (Name & ) Structural Data Admitted From: Home Planned Operative Procedure/s: Colonoscopy Consent for Planned Operative Procedure(s) Verified: Yes NPO Status Verified Time NPO: 00:00 Chart Verification Results Verified: CBC and BMP Additional verifications Anesthesia Reactions: No Hx Blood Transfusions: No Blood Transfusion Reaction: No Airway Assessment C-Spine Mobility Assessed: Yes TMJ Mobility Assessed: Yes Dentition: Good Dentition Neurological Assessment Level of Consciousness: Awake Hx Seizures: No Numbness or tingling in extremities: No Anesthesia Plan Anesthesia Risk discussed: Yes Anesthesia Plan: Verified ASA Class: II Anesthesia Type: MAC
[2022-11-17 07:27] VITALS: O2SAT 98
[2022-11-17 08:05] VITALS: BP 97/55; PULSE 81; RESP 14; TEMP 36.1; O2SAT 96
[2022-11-17 08:15] VITALS: BP 96/48; PULSE 80; RESP 15; O2SAT 95
[2022-11-17 08:25] VITALS: BP 108/60; PULSE 84; RESP 16; O2SAT 96
[2022-11-17 08:35] VITALS: BP 120/60; PULSE 83; RESP 17; O2SAT 98
== END 2022-11-17 08:35 | disposition home or self-care (01) ==
PROVIDERS: PCP Family Medicine; Visit Provider Surgery
PROC: 0DJD8ZZ Inspection of Lower Intestinal Tract, Via Natural or Artificial Opening Endoscopic (ICD-10-PCS; CPT 45380; principal; 2022-11-17 07:30)
DX: Z12.11 Encounter for screening for malignant neoplasm of colon (principal); Z86.010 Personal history of colon polyps; D12.6 Benign neoplasm of colon, unspecified; Z79.899 Other long term (current) drug therapy
CPT/HCPCS: 45380; J2704

== ENCOUNTER → 2023-02-18 12:42 | Outpatient (CLI) | payer OTHER, MEDICARE, SELFPAY ==
--- NOTE | 2023-02-18 12:46 | MM_ITS ---
PROCEDURE INFORMATION: Exam: MG Bilateral Screening 3D Mammography Exam date and time: 02/18/2023 12:57 PM Age: 67 years old Clinical indication: Screening examination TECHNIQUE: Imaging protocol: Bilateral Screening tomosynthesis and 2D mammography including computer-aided detection (CAD) when performed. COMPARISON: 1. MG MM DIG SCREENING MAMM BI W/CAD 12/25/2021 8:24 AM 2. MG MM DIG MAMM BI DX W/CAD 07/03/2019 1:15 PM FINDINGS: MAMMOGRAPHY: Breast composition: There are scattered areas of fibroglandular density. Mass: None. Architectural distortion: None. Calcifications: No suspicious calcifications. Asymmetric density: None. Skin thickening: None. Axillary adenopathy: None. IMPRESSION: No mammographic evidence of malignancy. Annual screening is recommended unless otherwise clinically indicated. ASSESSMENT: BI-RADS Category 1: Negative
== END ==
PROVIDERS: PCP Family Medicine; Visit Provider Family Medicine
DX: Z12.31 Encounter for screening mammogram for malignant neoplasm of breast (principal)
CPT/HCPCS: 77063; 77067

== ENCOUNTER → 2023-05-26 11:39 | Outpatient (CLI) | payer OTHER, MEDICARE, SELFPAY ==
[2023-05-26 12:03] LABS: Influenza A, PCR Not Detected (NotDetected); Influenza B, PCR Not Detected (NotDetected)
[2023-05-26 12:34] LABS: Coronavirus 19, PCR Detected (NotDetected)
== END ==
PROVIDERS: PCP Family Medicine; Visit Provider Physician Assistant
DX: Z20.822 Contact with and (suspected) exposure to COVID-19 (principal); U07.1 COVID-19
CPT/HCPCS: 87636

== ENCOUNTER 2024-04-05 10:03 | Outpatient (CLI) | payer OTHER, MEDICARE, SELFPAY ==
--- NOTE | 2024-04-05 10:07 | MM_ITS ---
PROCEDURE INFORMATION: Exam: MG Bilateral Screening 3D Mammography Exam date and time: 04/05/2024 9:58 AM Age: 68 years old Clinical indication: Screening. No family history of breast cancer. TECHNIQUE: Imaging protocol: Bilateral Screening tomosynthesis and 2D mammography including computer-aided detection (CAD) when performed. COMPARISON: 1. MG MM DIG SCREENING MAMM BI W/CAD 02/18/2023 12:57 PM 2. MG MM DIG SCREENING MAMM BI W/CAD 12/25/2021 8:24 AM 3. MG MM DIG MAMM BI DX W/CAD 07/03/2019 1:15 PM 4. MG DXBI MM Dig mamm BI DX w/CAD 12/26/2018 1:12 PM FINDINGS: MAMMOGRAPHY: Breast composition: There are scattered areas of fibroglandular density. Mass: None. Architectural distortion: None. Calcifications: No suspicious calcifications. Asymmetric density: No developing asymmetry. Skin thickening: None. Axillary adenopathy: None. IMPRESSION: No mammographic evidence of malignancy. Annual screening is recommended unless otherwise clinically indicated. ASSESSMENT: BI-RADS Category 1: Negative
== END 2024-04-05 23:59 | disposition home or self-care (01) ==
LOC: RAD 10:04
PROVIDERS: PCP Family Medicine; Visit Provider Family Medicine
DX: N60.19 Diffuse cystic mastopathy of unspecified breast (principal)
CPT/HCPCS: 77063; 77067

== ENCOUNTER 2024-04-10 17:41 | Emergency (ER) | payer OTHER, MEDICARE, SELFPAY ==
[2024-04-10 18:40] VITALS: BP 122/60; PULSE 76; RESP 18; TEMP 36.7; O2SAT 100; BMI 25.7
--- NOTE | 2024-04-10 18:59 | ED_ITS ---
Discharge Plan Disposition Patient Disposition: Home, Self-Care Condition: Good Prescriptions Prescriptions: New ondansetron 4 mg tablet,disintegrating 4 mg PO Q8H PRN (Reason: nausea and vomiting) Qty: 10 0RF No Action losartan 50 mg tablet 50 mg PO DAILY Patient Comments: TAKE 1 TABLET BY MOUTH TWICE DAILY allopurinol 100 mg tablet 100 mg PO DAILY Patient Comments: TAKE 2 TABLETS BY MOUTH ONCE DAILY FOR 90 DAYS valacyclovir 500 mg tablet 500 mg PO DAILY Patient Comments: TAKE 1 TABLET BY MOUTH TWICE DAILY ferrous sulfate [FeroSul] 325 mg (65 mg iron) tablet 325 mg PO DAILY Patient Comments: TAKE 1 TABLET BY MOUTH THREE TIMES DAILY FOR 90 DAYS triamterene-hydrochlorothiazid 37.5-25 mg tablet 1 tab PO DAILY Patient Comments: TAKE 1 TABLET BY MOUTH ONCE DAILY montelukast 10 mg tablet 10 mg PO DAILY Patient Comments: TAKE 1 TABLET BY MOUTH ONCE DAILY fluoxetine 20 mg capsule 20 mg PO DAILY Patient Comments: TAKE 1 CAPSULE BY MOUTH ONCE DAILY risedronate 35 mg tablet 35 mg PO DAILY Patient Comments: TAKE 1 TABLET BY MOUTH ONCE A WEEK Referrals Follow up/Referrals: Jean Rivers MD [Primary Care Provider] - See instructions Activity Restrictions/Add. Instructions Additional Instructions/Restrictions: Drink extra fluids with and between meals. If you have difficulty drinking, try very small amounts of water or suck on ice chips. ? Avoid fruit juices, as these do not replace minerals and can actually increase diarrhea. ? Children and adults can use sports drinks to replenish electrolytes. Younger children and infants should use products formulated for children, like oral rehydration solutions. ? Eat food in small amounts and let your stomach recover. ? Get lots of rest. You may feel tired or weak. ? No greasy or fried foods for the next 24-48 hours BRAT diet Bananas Rice Apples and Arial ? Make sure to drink plenty of liquids ? Return if needed ? Straight to ER if any life threatening symptoms ? Zofran as prescribed ? You was given an outpatient order for diarrhea panel, please collect specimen and bring back to outpatient lab then call back to the [facility] or follow up with family doctor for results ? Follow up with family doctor in the next 48-72 hours if no improvement or any worsening of symptoms Clinical Impressions Clinical Impression: Viral syndrome Stand Alone Forms Stand Alone Forms: Work/School Release Instructions Patient Instructions: Nausea and Vomiting-Adult, Ondansetron Print Language Print Language: Bulgarian Discharge [place] [facility] [facility] [place] General Stated complaint: vomiting, diarrhea, weakness, body aches Mode of Arrival: Ambulatory Source of Information: Patient Limitations: No Limitations Time Seen by Provider: 04/10/24 18:59 Description of Symptoms (Recalled from Triage Doc. by RN): PATIENT C/O VOMITING, DIARRHEA, FEELING LIGHT-HEADED AND CLAMMY, ALMOST PASSED OUT, NAUSEA, AND BODY ACHES THAT STARTED LAST NIGHT HEENT Symptoms (Recalled from RN notes): No Resp Symptoms (Recalled from RN notes): No Skin Symptoms (Recalled from RN notes): No MS Symptoms (Recalled from RN notes): No Functional Status (Recalled from RN notes): WNL History of Present Illness Provider Complaint: Patient states that grandchild was sick a few days with N/V/D states last night she started feeling bad and feeling achy and weak States she went into work this evening and started feeling worse States that she started with N/V/D body aches, chills, and felt a little light headed and weak after vomiting episode and leaned against the wall to collect herself States that vomiting started around 5pm and she has vomited x 3 and had one episode of diarrhea Related Data Home Medications ?Medication ?Instructions ?Recorded ?Confirmed allopurinol 100 mg tablet 100 mg PO DAILY 04/10/24 04/10/24 ferrous sulfate 325 mg (65 mg 325 mg PO DAILY 04/10/24 04/10/24 iron) tablet (FeroSul) fluoxetine 20 mg capsule 20 mg PO DAILY 04/10/24 04/10/24 losartan 50 mg tablet 50 mg PO DAILY 04/10/24 04/10/24 montelukast 10 mg tablet 10 mg PO DAILY 04/10/24 04/10/24 risedronate 35 mg tablet 35 mg PO DAILY 07/29/24 07/29/24 triamterene 37.5 1 tab PO DAILY 04/10/24 04/10/24 mg-hydrochlorothiazide 25 mg tablet valacyclovir 500 mg tablet 500 mg PO DAILY 04/10/24 04/10/24 Previous Rx's ?Medication ?Instructions ?Recorded ondansetron 4 mg disintegrating 4 mg PO Q8H PRN nausea and 04/10/24 tablet vomiting #10 tabs Allergies Allergy/AdvReac Type Severity Reaction Status Date / Time No Known Allergies Allergy Verified 04/28/23 13:07 Worker's Comp Is this a Worker's Comp case?: No [facility] Disclaimer: The information contained in this section may have been updated after the patient was seen, as this information can be updated by other users. Medical History Allergies Depression History of anemia History of COVID-19 Hypertension Osteoporosis Pneumonia Skin cancer Surgical History History of cholecystectomy History of colonoscopy Hx of hysterectomy, total Family History Father Melanoma Sister Lung cancer Kidney disease Diabetes Social History (Updated 04/26/23 @ 14:51 by Danielle Rhoades RN) Smoking Status: Never smoker alcohol intake: never substance use type: denies use current occupational status: employed Travel in the last 8 weeks: Inside the [place] household members: spouse and family housing: house lives independently: No marital status: education level: high school service: No assisted: No current occupation: [employer] current occupational exposures/hazards: No caffeine: Yes do you feel safe at home: Yes victim of physical abuse: No victim of emotional abuse: No victim of sexual abuse: No would you like helpful sources: No ROS Obtained: Yes All systems reviewed & no additional complaints except as documented and Yes Systems reviewed as appropriate & no additional complaints except as documented Constitutional Constitutional: Reports system reviewed and no additional complaints, except as documented, Reports as per HPI, Reports body ache, Reports chills, Reports fatigue, Denies headache(s), Reports poor appetite and Reports weakness ENT Ears, Nose, Mouth, and Throat: Reports system reviewed and no additional complaints, except as documented, Reports as per HPI and Denies headache(s) Cardiovascular Cardiovascular: Reports system reviewed and no additional complaints, except as documented, Denies chest pain, Denies dyspnea, Denies dyspnea on exertion, Denies palpitations and Denies syncope Respiratory Respiratory: Reports system reviewed and no additional complaints, except as documented, Reports as per HPI, Denies shortness of breath, Denies dyspnea and Denies dyspnea on exertion Gastrointestinal Gastrointestingal: Reports system reviewed and no additional complaints, except as documented, as per HPI, diarrhea, nausea and vomiting; Denies abdominal pain Integumentary/Breasts Skin/Breast: Reports system reviewed and no additional complaints, except as documented and Reports as per HPI Neurologic Neurologic: Reports system reviewed and no additional complaints, except as documented, Reports as per HPI, Denies abnormal speech, Denies headache(s), Denies other visual disturbances, Denies syncope, Reports weakness and Reports other (felt light headed earlier and weak) Endocrine Endocrine: Reports fatigue and Denies palpitations Physical Exam General General appearance: alert and in no apparent distress Eye Eye exam: Present normal appearance, PERRL and EOMI ENT ENT exam: Present normal exam, normal oropharynx and mucous membranes moist Chest Chest inspection: Present normal inspection and symmetric chest wall rise Respiratory Respiratory exam: Present normal lung sounds bilaterally; Absent respiratory distress or wheezes Cardiovascular Cardiovascular exam: Present regular rate, normal rhythm and normal heart sounds Abdominal Exam Abdominal exam: Present soft and normal bowel sounds; Absent distention or tenderness Neurological Exam Neurological exam: Present alert and oriented X3 Medical Decision Making Adams Inquiry Pt receiving controlled substance: No Adams was queried for this patient: No Vital Signs: 04/10/24 18:40 Temperature 98.0 F Temperature Source Oral Pulse Rate [Left Brachial] 76 Respiratory Rate 18 Blood Pressure [Left Arm] 122/60 Blood Pressure Mean [Left Arm] 80 Blood Pressure Source [Left Arm] Automatic Cuff Blood Pressure Position [Left Arm] Sitting 02 Sat by Pulse Oximetry 100 Oxygen Delivery Method Room Air Orders (Tests/Meds): ORDERS Category Date Time Status Rapid PCR Covid and Flu A/B Stat Lab 04/10/24 18:55 Ordered Medical Decision Narrative: After zofran patient states she is feeling better no longer having N/V given Gatoraid and she is drinking at this time will see if she can keep it down Patient drink gatoraid and kept it down states nausea much improved pt dc'd home with diarrhea panel order and collection
[2024-04-10 19:01] LABS: Coronavirus 19, PCR Not Detected (NotDetected); Influenza A, PCR Not Detected (NotDetected); Influenza B, PCR Not Detected (NotDetected)
[2024-04-10] MEDS: ONDANSETRON 4MG ODT 4 MG SL (19:09)
[2024-04-10 19:42] VITALS: BP 122/60; PULSE 76; RESP 18; TEMP 36.7; O2SAT 100
== END 2024-04-10 19:44 | disposition home or self-care (01) ==
PROVIDERS: Emergency Provider Nurse Practitioner; PCP Family Medicine
DX: R11.2 Nausea with vomiting, unspecified (principal); R19.7 Diarrhea, unspecified; R53.1 Weakness; R68.83 Chills (without fever); M79.18 Myalgia, other site; B34.9 Viral infection, unspecified
CPT/HCPCS: 87636; 99204; 99212; G0463; Q0162

== ENCOUNTER 2024-04-11 13:29 | Outpatient (CLI) | payer OTHER, MEDICARE, SELFPAY ==
[2024-04-11 13:31] LABS: Adenovirus F 40/41, stool Not Detected (NotDetected); Astrovirus Not Detected (NotDetected); Campylobacter Not Detected (NotDetected); Clostridium Difficile A/B, PCR Not Detected (NotDetected); Cryptosporidium Not Detected (NotDetected); Cyclospora Cayetanesis Not Detected (NotDetected); Entamoeba histolytica Not Detected (NotDetected); Enteroaggregative E coli Not Detected (NotDetected); Enteropathogenic E coli Not Detected (NotDetected); Enterotoxigenic E coli Not Detected (NotDetected); Giardia lamblia Not Detected (NotDetected); Plesimonas Shigalloides, PCR Not Detected (NotDetected); Rotavirus A Not Detected (NotDetected); Salmonella, PCR Not Detected (NotDetected); Sapovirus Not Detected (NotDetected); Shiga-like toxin E coli Not Detected (NotDetected); Shigella Enterovasive E coli Not Detected (NotDetected); Vibrio Cholerae Not Detected (NotDetected); Vibrio, PCR Not Detected (NotDetected); Yersinia Entercolitica, PCR Not Detected (NotDetected)
[2024-04-12 11:07] LABS: Norovirus Detected (NotDetected)
--- NOTE | 2024-04-12 11:16 | PC.NURSE ---
NOTIFIED PATIENT OF DIARRHEA PANEL RESULTS AT THIS TIME. PATIENT ADVISED TO DRINK PLENTY OF WATER AND GATORADE AND FOLLOW-UP WITH PCP IF NEEDED. PATIENT VERBALIZED UNDERSTANDING
== END 2024-04-11 23:59 | disposition home or self-care (01) ==
LOC: LAB.DROPOF 13:30
PROVIDERS: PCP Nurse Practitioner; Visit Provider Nurse Practitioner
DX: R19.7 Diarrhea, unspecified (principal); R11.2 Nausea with vomiting, unspecified
CPT/HCPCS: 87507

== ENCOUNTER 2024-05-11 08:55 | Outpatient (CLI) | payer OTHER, MEDICARE, SELFPAY ==
--- NOTE | 2024-05-11 08:58 | XR_ITS ---
FINAL REPORT CLINICAL HISTORY: SCREENING COMPARISON: None FINDINGS: Using L1-4, the bone mineral density of the spine is 0.796 g/cm2, corresponding to T-score of -2.3 which is consistent with osteopenia. Using the left hip, the bone mineral density of the femoral neck is 0.578 g/cm2, corresponding to a T-score of -2.4 which is consistent with osteopenia. Using the right hip, the bone mineral density of the femoral neck is 0.640 g/cm2, corresponding to a T-score of -1.9 which is consistent with osteopenia. FRAX not reported because the patient is being treated for osteoporosis. NOTE: T-score: Standard deviation compared with peak bone mass of young adult mean. *Following the recommendations of the International Society of Bone densitometry, classification of hip BMD is based on the lower of two T-scores; total hip or femoral neck. IMPRESSION: Diminished bone mineral density consistent with osteopenia. Reviewed, Interpreted and Dictated by Juanjo Flores MD Transcribed by Reema Kilgore Authenticated and [facility]
== END 2024-05-11 23:59 | disposition home or self-care (01) ==
LOC: RAD 08:56
PROVIDERS: PCP Family Medicine; Visit Provider Family Medicine
DX: M81.0 Age-related osteoporosis without current pathological fracture (principal)
CPT/HCPCS: 77080

== ENCOUNTER 2024-06-06 10:30 | Day surgery (SDC) | payer OTHER, MEDICARE, SELFPAY ==
[2024-06-02 13:29] VITALS: BMI 25.6
[2024-06-06 10:50] VITALS: BP 132/67; PULSE 61; RESP 18; TEMP 36.2; O2SAT 99
--- NOTE | 2024-06-06 10:51 | P.PCN_ITS ---
Procedure: Date: 06/06/24 Patient Date of :: 1955 Procedure Performed:: Colonoscopy Indications:: History of colon polyps Note: Most recent colonoscopy in November 2022 revealed small residual adenoma at s car/tattoo at site of prior right colon polypectomy. In September 2021 a large complex adenoma of the right colon was excised and tattooed. Performing Provider:: Bassam Lozada MD Referring Provider:: . Sedation:: Monitored anesthesia care Procedure:: After informed consent was obtained the patient was taken to the endoscopy suite. Sedation ensued after the patient was transferred to the left lateral decubitus position. Pulse, blood pressure, and oxygen saturation were monitored throughout the procedure. Digital rectal exam revealed no significant abnormality. The colonoscope was placed in position. The entire colon was evaluated. The colonoscope was carefully removed and the patient was transferred to recovery in stable condition. Please see findings and specimens below for detail. Findings:: Bowel preparation moderate Mild hemorrhoidal tags Tattoo region without visible anomaly Specimens:: None Recommendations:: Repeat colonoscopy in 2-3 years secondary to history of significant polyp requiring sequential excision. Complications:: No immediate Estimated blood obtained (mL): 0 Colonoscopy Component Colonoscopy Component Was a colonoscopy performed during today's procedure?: Yes Recommended follow up colonoscopy of at least 10 years?: No If no, follow up colonoscopy recommended in ___ years?: (See above) Reason for not recommending >/= 10 yr follow-up interval?: (See above)
[2024-06-06] MEDS: LACTATED RINGERS 1000ML 1,000 ML 25 ML IV (11:01)
[2024-06-06 11:05] VITALS: O2SAT 100
--- NOTE | 2024-06-06 11:18 | EXP.ANES.CKL ---
[facility] Disclaimer: The information contained in this section may have been updated after the patient was seen, as this information can be updated by other users. Medical History Allergies Depression History of anemia History of COVID-19 Hypertension Osteoporosis Pneumonia Skin cancer Surgical History History of cholecystectomy History of colonoscopy Hx of hysterectomy, total Family History Father Melanoma Sister Lung cancer Kidney disease Diabetes Social History (Updated 06/06/24 @ 10:56 by Erendira Farr RN) Smoking Status: Never smoker alcohol intake: never substance use type: denies use current occupational status: employed Travel in the last 8 weeks: None household members: spouse and family housing: house lives independently: No marital status: education level: high school service: No shelter: No current occupation: [employer] current occupational exposures/hazards: No caffeine: Yes do you feel safe at home: Yes victim of physical abuse: No victim of emotional abuse: No victim of sexual abuse: No would you like helpful sources: No [facility] Anesthesia Checklist Patient Identification Patient Identification: Arm Band Structural Data Admitted From: Home Planned Operative Procedure/s: Colonoscopy Consent for Planned Operative Procedure(s) Verified: Yes Verified Documents: Surgical Consent and History and Physical NPO Status Verified Time NPO: 00:00 Additional verifications Anesthesia Reactions: No Hx Blood Transfusions: No Blood Transfusion Reaction: No Airway Assessment Mallampati Score:: Class II C-Spine Mobility Assessed: Yes TMJ Mobility Assessed: Yes Dentition: Good Dentition Neurological Assessment Level of Consciousness: Awake, Alert and Appropriate Anesthesia Plan Anesthesia Risk discussed: Yes Anesthesia Plan: Verified ASA Class: II Anesthesia Type: MAC
[2024-06-06 11:34] VITALS: BP 87/49; PULSE 62; RESP 16; TEMP 36.3; O2SAT 97
[2024-06-06 11:44] VITALS: BP 91/46; PULSE 57; RESP 16; O2SAT 97
[2024-06-06 11:54] VITALS: BP 102/48; PULSE 58; RESP 18; O2SAT 98
[2024-06-06 12:04] VITALS: BP 104/50; PULSE 61; RESP 18; O2SAT 99
== END 2024-06-06 12:04 | disposition home or self-care (01) ==
PROVIDERS: PCP Family Medicine; Visit Provider Surgery
PROC: 0DJD8ZZ Inspection of Lower Intestinal Tract, Via Natural or Artificial Opening Endoscopic (ICD-10-PCS; CPT 45378; principal; 2024-06-06 11:30)
DX: Z86.010 Personal history of colon polyps (principal); K64.9 Unspecified hemorrhoids
CPT/HCPCS: 45378; J7120

== ENCOUNTER 2025-05-15 13:05 | Outpatient (CLI) | payer OTHER, MEDICARE, SELFPAY ==
--- OUTSIDE RECORDS SUMMARY | 2025-05-15 13:11 | XMS_ITS | Clinical Summary ---
Author Organization [facility] Address [address] [place], [place] [id number] Phone [email or web address] Care Team Providers Care House Visitor Name Role Phone Unavailable Primary Care Provider Unavailabl e Social History Tobacco Use Types Packs/Day Years Used Date Smoking Tobacco: Never Assessed Intimate Partner Violence Answer Date R ecorded Insults You Not on file 12/28/2020 Threatens You Not on file 12/28/2020 Screams at You Not on file 12/28/2020 Physically Hurt Not on file 12/28/2020 Intimate Partner Violence Score Not on file 12/28/2020 Stress Answer Date Recorded Stress in your Life Not on file 07/19/2024 Dealing with Stress 3 07/19/2024 Comments Unknown Sex and Gender Information Value Date Recorded Sex Assigned at Not on file Legal Sex Female 3:19 AM CDT Gender Identity Not on file Sexual Orientation Not on file Plan of Treatment Health Maintenance Due Date Last Done Comments CT Colonography 1955 Colonoscopy 1955 Colorectal Cancer Screening Combo 1955 DNA Cologuard 1955 Dental Cleaning/Exam 1955 FIT or FOBT Test 1955 Hepatitis C Screening 1955 Sigmoidoscopy 1955 Annual Preventive Exam 1972 Hep B Infection Screening - Triple Screen 1972 Tetanus Diphtheria and Pertu ssis Immunization (1 - Tdap) 1973 Breast Cancer Screening 1984 Osteoporosis screening DEXA 2004 Pneumococcal: 65+ Years (1 o f 1 - PCV) 2004 Zoster Immunization (1 of 2) 2004 Covid-19 Immunization (1 - 2 -25 season) 2025 Influenza Immunization (#1) 2025 HIB Immunization Aged Out No longer e ligible based on patient's age to complete this topic HPV Immunization Aged Out No longer e ligible based on patient's age to complete this topic Hepatitis A Immunization Aged Out No longer eligible based on patient's age to complete this topic Hepatitis B Immunization Aged Out No longer eligible based on patient's age to complete this topic Polio Immunization Aged Out No longer eligible based on patient's age to complete this topic
--- OUTSIDE RECORDS SUMMARY | 2025-05-15 13:11 | XMS_ITS | Clinical Summary ---
Demographics Address [address] [place] [address] Home Phone Preferred Language Israeli Marital Status Jewish Affiliation Unknown Race White Ethnic Group Not or Lati no Author Organization [facility] Address [address] [place], [place] [address]y [address] [place] [address] Phone Care Team Providers Care Dining Room Captain Name Role Phone Unavailable Primary Care Provider Unavailabl e Surgical History Surgery Date Site/Laterality Comments CATARACT EXTRACTION W/ INTRA OCULAR LENS IMPLANT 11/10/[address] Josue Ying CATARACT EXTRACTION W/ INTRA OCULAR LENS IMPLANT 01/19/[address] Murphy Social History Tobacco Use Types Packs/Day Years Used Date Smoking Tobacco: Never Assessed Comments Unknown Sex and Gender Information Value Date Recorded Sex Assigned at Not on file Legal Sex Female 2:39 PM EDT Gender Identity Not on file Sexual Orientation Not on file Obstetrics History Plan of Treatment Health Maintenance Due Date Last Done Comments Annual Wellness Exam 1957 Hepatitis C Screening 1972 DTaP/TDaP/Td (1 - Tdap) 1973 Breast Cancer Screening 1994 Cologuard 1999 Colon Cancer Screening 1999 Colonoscopy 1999 FIT 1999 Sigmoidoscopy 1999 Virtual Colonography 1999 Pneumococcal Vaccine 50+ (1 of 1 - PCV) 2004 Zoster (1 of 2) 2004 Bone Density Screening 2019 COVID-19 Vaccine (2023-2 5 season) 2024 Influenza Vaccine (#1) 2025 Hepatitis B Vaccine Aged Out No longe r eligible based on patient's age to complete this topic Meningococcal B Vaccine Aged Out No l onger eligible based on patient's age to complete this topic Insurance * Guarantor: Katie Carreno Account Type Relation to Patient Date of Phone Billing Address [facility] Personal/Family Self 1955 [address] [place] [address] [employer]
--- OUTSIDE RECORDS SUMMARY | 2025-05-15 13:11 | XMS_ITS ---
Author Organization Unknown Medications Date Medication Dosage DosageUnit StartDate StopDate StopReason Active DoseQuantity DoseUnit Dispense DispenseUnit Refills NdcCode DrugCode PharmacyId IsPrescription MappedMedication Srcstatus Custom 04/11 00:00 :00 Allopurinol 100 MG Tablet 1 180 Tablet 1 [id number] 701 P Taking 03/22 00:00 :00 Allopurinol 100 MG Tablet 1 180 Tablet 1 [id number] 701 P Unknown Status 12/25 00:00 :00 Allopurinol 100 MG Tablet 1 180 Tablet 1 [id number] 701 P Taking 11/10 00:00 :00 Allopurinol 100 MG Tablet 1 180 Tablet 1 [id number] 701 P Taking 10/30 00:00 :00 Allopurinol 100 MG Tablet 1 180 Tablet 1 [id number] 701 P Unknown Status 08/03 00:00 :00 Allopurinol 100 MG Tablet 1 180 Tablet 1 [id number] 701 Taking 07/27 00:00 :00 Allopurinol 100 MG Tablet 1 180 Tablet 1 [id number] 701 Taking 04/18 00:00 :00 Allopurinol 100 MG Tablet 1 180 Tablet 1 [id number] 701 Taking 12/25 00:00 :00 Benzonatate 200 MG Capsule 11/10/2024 00:00:00 0 30 0 [id number] 3 205 P Discontinu ed 11/10 00:00 :00 Benzonatate 200 MG Capsule 11/10/2024 00:00:00 1 30 0 [id number] 3 205 P Start 11/10 00:00 :00 Cefuroxime Axetil 500 MG Tablet 08/03/2024 00:00:00 0 14 [id number] 0 101 P Discontinu ed 08/03 00:00 :00 Cefuroxime Axetil 500 MG Tablet 08/03/2024 00:00:00 1 14 [id number] 0 101 P Start 04/11 00:00 :00 Coenzyme Q10 100 MG Capsule 07/23/2020 00:00:00 0 [id number] 3 209 P Not Taking 12/25 00:00 :00 Coenzyme Q10 100 MG Capsule 07/23/2020 00:00:00 0 [id number] 3 209 P Not Taking 11/10 00:00 :00 Coenzyme Q10 100 MG Capsule 07/23/2020 00:00:00 1 [id number] 3 209 P Taking 08/03 00:00 :00 Coenzyme Q10 100 MG Capsule 07/23/2020 00:00:00 1 [id number] 3 209 P Taking 07/27 00:00 :00 Coenzyme Q10 100 MG Capsule 07/23/2020 00:00:00 1 [id number] 3 209 P Taking 04/18 00:00 :00 Coenzyme Q10 100 MG Capsule 07/23/2020 00:00:00 1 [id number] 3 209 P Taking 04/11 00:00 :00 Ferrous Sulfate 325 (65 Fe) MG Tablet 1 270 Tablet 1 [id number] 901 Taking 12/25 00:00 :00 Ferrous Sulfate 325 (65 Fe) MG Tablet 1 270 Tablet 1 [id number] 901 Taking 11/10 00:00 :00 Ferrous Sulfate 325 (65 Fe) MG Tablet 1 270 Tablet 1 [id number] 901 Taking 08/03 00:00 :00 Ferrous Sulfate 325 (65 Fe) MG Tablet 1 270 Tablet 1 [id number] 901 Taking 07/27 00:00 :00 Ferrous Sulfate 325 (65 Fe) MG Tablet 1 270 Tablet 1 [id number] 901 Taking 04/18 00:00 :00 Ferrous Sulfate 325 (65 Fe) MG Tablet 1 270 Tablet 1 [id number] 901 Taking 04/11 00:00 :00 FLUoxetine HCl 20 MG Capsule 1 90 Capsule 1 [id number] 054 P Taking 03/22 00:00 :00 FLUoxetine HCl 20 MG Capsule 1 90 Capsule 1 [id number] 054 P Unknown Status 12/25 00:00 :00 FLUoxetine HCl 20 MG Capsule 1 90 Capsule 1 [id number] 054 Taking 11/10 00:00 :00 FLUoxetine HCl 20 MG Capsule 1 90 Capsule 1 [id number] 054 Taking 10/11 00:00 :00 FLUoxetine HCl 20 MG Capsule 1 90 Capsule 1 [id number] 054 Start 04/11 00:00 :00 Fluticasone Propionate 50 MCG/ACT Suspension 12/20/2019 00:00:00 1 3 1 [id number] 7 099 P Taking 12/25 00:00 :00 Fluticasone Propionate 50 MCG/ACT Suspension 12/20/2019 00:00:00 1 3 1 [id number] 7 099 P Taking 11/10 00:00 :00 Fluticasone Propionate 50 MCG/ACT Suspension 12/20/2019 00:00:00 1 3 1 [id number] 7 099 P Taking 08/03 00:00 :00 Fluticasone Propionate 50 MCG/ACT Suspension 12/20/2019 00:00:00 1 3 1 [id number] 7 099 P Taking 07/28 00:00 :00 Fluticasone Propionate 50 MCG/ACT Suspension 12/20/2019 00:00:00 1 3 1 [id number] 7 099 P Unknown Status 07/27 00:00 :00 Fluticasone Propionate 50 MCG/ACT Suspension 12/20/2019 00:00:00 1 3 1 [id number] 7 099 P Taking 04/18 00:00 :00 Fluticasone Propionate 50 MCG/ACT Suspension 12/20/2019 00:00:00 1 3 1 [id number] 7 099 P Taking 04/11 00:00 :00 L-Lysine HCl 500 MG Capsule 05/20/2023 00:00:00 1 [id number] 3 37 P Taking 12/25 00:00 :00 L-Lysine HCl 500 MG Capsule 05/20/2023 00:00:00 1 [id number] 3 37 P Taking 11/10 00:00 :00 L-Lysine HCl 500 MG Capsule 05/20/2023 00:00:00 1 [id number] 3 37 P Taking 08/03 00:00 :00 L-Lysine HCl 500 MG Capsule 05/20/2023 00:00:00 1 [id number] 3 37 P Taking 07/27 00:00 :00 L-Lysine HCl 500 MG Capsule 05/20/2023 00:00:00 1 [id number] 3 37 P Taking 04/18 00:00 :00 L-Lysine HCl 500 MG Capsule 05/20/2023 00:00:00 1 [id number] 3 37 P Taking 04/11 00:00 :00 Levocetiriz ine Dihydrochlo ride 5 MG Tablet 1 30 [id number] 0 198 Taking 12/25 00:00 :00 Levocetiriz ine Dihydrochlo ride 5 MG Tablet 1 30 [id number] 0 198 Taking 11/10 00:00 :00 Levocetiriz ine Dihydrochlo ride 5 MG Tablet 1 30 [id number] 0 198 Taking 08/03 00:00 :00 Levocetiriz ine Dihydrochlo ride 5 MG Tablet 1 30 [id number] 0 198 Taking 07/27 00:00 :00 Levocetiriz ine Dihydrochlo ride 5 MG Tablet 1 30 [id number] 0 198 Taking 04/18 00:00 :00 Levocetiriz ine Dihydrochlo ride 5 MG Tablet 1 30 [id number] 0 198 Taking 04/11 00:00 :00 Losartan Potassium 50 MG Tablet 1 180 Tablet 1 [id number] 190 Taking 01/03 00:00 :00 Losartan Potassium 50 MG Tablet 1 180 Tablet 1 [id number] 190 Start 01/03 00:00 :00 Losartan Potassium 50 MG Tablet 0 180 Tablet 1 [id number] 190 Stop 12/25 00:00 :00 Losartan Potassium 50 MG Tablet 1 180 Tablet 1 [id number] 190 Taking 11/10 00:00 :00 Losartan Potassium 50 MG Tablet 1 180 Tablet 1 [id number] 190 Taking 08/03 00:00 :00 Losartan Potassium 50 MG Tablet 1 180 Tablet 1 [id number] 190 Taking 07/27 00:00 :00 Losartan Potassium 50 MG Tablet 1 180 Tablet 1 [id number] 190 Taking 07/24 00:00 :00 Losartan Potassium 50 MG Tablet 1 180 Tablet 1 [id number] 190 Start 07/24 00:00 :00 Losartan Potassium 50 MG Tablet 0 180 Tablet 1 [id number] 190 Stop 04/18 00:00 :00 Losartan Potassium 50 MG Tablet 1 180 Tablet 1 [id number] 190 Taking 11/10 00:00 :00 Medrol 4 MG Tablet Therapy Pack 08/03/2024 00:00:00 0 1 [id number] 5 604 P Discontinu ed 08/03 00:00 :00 Medrol 4 MG Tablet Therapy Pack 08/03/2024 00:00:00 1 1 [id number] 5 604 P Start 04/11 00:00 :00 Montelukast Sodium 10 MG Tablet 1 90 Tablet 0 29 [id number] 019 Taking 03/19 00:00 :00 Montelukast Sodium 10 MG Tablet 1 90 Tablet 0 29 [id number] 019 Start 03/19 00:00 :00 Montelukast Sodium 10 MG Tablet 0 90 Tablet 0 29 [id number] 019 Stop 12/25 00:00 :00 Montelukast Sodium 10 MG Tablet 1 90 Tablet 0 29 [id number] 019 Taking 12/20 00:00 :00 Montelukast Sodium 10 MG Tablet 1 90 Tablet 0 29 [id number] 019 Start 12/20 00:00 :00 Montelukast Sodium 10 MG Tablet 0 90 Tablet 1 29 [id number] 019 Stop 11/10 00:00 :00 Montelukast Sodium 10 MG Tablet 1 90 Tablet 1 29 [id number] 019 Taking 08/03 00:00 :00 Montelukast Sodium 10 MG Tablet 1 90 Tablet 1 29 [id number] 019 Taking 07/27 00:00 :00 Montelukast Sodium 10 MG Tablet 1 90 Tablet 1 29 [id number] 019 Taking 07/06 00:00 :00 Montelukast Sodium 10 MG Tablet 1 90 Tablet 1 29 [id number] 019 Start 07/06 00:00 :00 Montelukast Sodium 10 MG Tablet 0 90 Tablet 0 29 [id number] 019 Stop 04/18 00:00 :00 Montelukast Sodium 10 MG Tablet 1 90 Tablet 0 29 [id number] 019 Taking 04/17 00:00 :00 Montelukast Sodium 10 MG Tablet 1 90 Tablet 0 29 [id number] 019 Start 04/17 00:00 :00 Montelukast Sodium 10 MG Tablet 0 90 Tablet 1 29 [id number] Stop 12/25 00:00 :00 Promethazin e-DM 6.25-15 MG/5ML Syrup 11/10/2024 00:00:00 0 473 mL 0 [id number] 5 701 P Discontinu ed 11/10 00:00 :00 Promethazin e-DM 6.25-15 MG/5ML Syrup 11/10/2024 00:00:00 1 473 mL 0 [id number] 5 701 P Start 10/11 00:00 :00 PROzac 20 MG Capsule 0 90 1 [id number] 502 Stop 08/03 00:00 :00 PROzac 20 MG Capsule 1 90 1 [id number] 502 Taking 07/27 00:00 :00 PROzac 20 MG Capsule 1 90 1 [id number] 502 Taking 04/18 00:00 :00 PROzac 20 MG Capsule 1 90 1 [id number] 502 Taking 04/11 00:00 :00 Risedronate Sodium 35 MG Tablet 1 12 Tablet 1 33 [id number] 937 Taking 01/09 00:00 :00 Risedronate Sodium 35 MG Tablet 1 12 Tablet 1 33 337117 937 Start 01/09 00:00 :00 Risedronate Sodium 35 MG Tablet 0 12 Tablet 0 33 [id number] 937 Stop 12/25 00:00 :00 Risedronate Sodium 35 MG Tablet 1 12 Tablet 0 33 498659 937 Taking 11/10 00:00 :00 Risedronate Sodium 35 MG Tablet 1 12 Tablet 0 33 690703 937 Taking 10/17 00:00 :00 Risedronate Sodium 35 MG Tablet 1 12 Tablet 0 33 514005 937 Start 10/17 00:00 :00 Risedronate Sodium 35 MG Tablet 0 12 Tablet 1 33 472746 937 Stop 08/03 00:00 :00 Risedronate Sodium 35 MG Tablet 1 12 Tablet 1 33 661958 937 Taking 07/27 00:00 :00 Risedronate Sodium 35 MG Tablet 1 12 Tablet 1 33 544560 937 Taking 05/16 00:00 :00 Risedronate Sodium 35 MG Tablet 1 12 Tablet 1 33 841732 937 Start 05/16 00:00 :00 Risedronate Sodium 35 MG Tablet 0 12 Tablet 1 33 [id number] 937 Stop 04/18 00:00 :00 Risedronate Sodium 35 MG Tablet 1 12 Tablet 1 33 528052 937 Taking 04/11 00:00 :00 Rosuvastati n Calcium 10 MG Tablet 01/31/2025 00:00:00 1 90 1 [id number] 8 005 P Taking 01/17 00:00 :00 Rosuvastati n Calcium 10 MG Tablet 01/31/2025 00:00:00 1 90 1 [id number] 8 005 P Start 12/25 00:00 :00 Tamiflu 75 MG Capsule 11/10/2024 00:00:00 0 10 Capsule 0 [id number] 085 P Discontinu ed 11/10 00:00 :00 Tamiflu 75 MG Capsule 11/10/2024 00:00:00 1 10 Capsule 0 [id number] 085 P Start 04/11 00:00 :00 Triamterene -HCTZ 37.5-25 MG Tablet 1 90 Tablet 1 [id number] 605 Taking 01/03 00:00 :00 Triamterene -HCTZ 37.5-25 MG Tablet 1 90 Tablet 1 [id number] 605 Start 01/03 00:00 :00 Triamterene -HCTZ 37.5-25 MG Tablet 0 90 Tablet 1 [id number] 401 Stop 12/25 00:00 :00 Triamterene -HCTZ 37.5-25 MG Tablet 1 90 Tablet 1 [id number] 401 Taking 11/10 00:00 :00 Triamterene -HCTZ 37.5-25 MG Tablet 1 90 Tablet 1 [id number] 401 Taking 08/03 00:00 :00 Triamterene -HCTZ 37.5-25 MG Tablet 1 90 Tablet 1 [id number] 401 Taking 07/27 00:00 :00 Triamterene -HCTZ 37.5-25 MG Tablet 1 90 Tablet 1 [id number] 401 Taking 07/24 00:00 :00 Triamterene -HCTZ 37.5-25 MG Tablet 1 90 Tablet 1 [id number] 401 Start 07/24 00:00 :00 Triamterene -HCTZ 37.5-25 MG Tablet 0 90 Tablet 1 [id number] 401 Stop 04/18 00:00 :00 Triamterene -HCTZ 37.5-25 MG Tablet 1 90 Tablet 1 [id number] 401 Taking 04/11 00:00 :00 valACYclovi r HCl 500 MG Tablet 01/13/2023 00:00:00 1 60 Tablet 4 [id number] 427 577 P Taking 03/22 00:00 :00 valACYclovi r HCl 500 MG Tablet 01/13/2023 00:00:00 1 60 Tablet 4 [id number] 427 577 P Unknown Status 12/25 00:00 :00 valACYclovi r HCl 500 MG Tablet 01/13/2023 00:00:00 1 60 4 [id number] 7 577 P Taking 11/10 00:00 :00 valACYclovi r HCl 500 MG Tablet 01/13/2023 00:00:00 1 60 4 [id number] 7 577 P Taking 08/03 00:00 :00 valACYclovi r HCl 500 MG Tablet 01/13/2023 00:00:00 1 60 4 [id number] 7 577 P Taking 07/27 00:00 :00 valACYclovi r HCl 500 MG Tablet 01/13/2023 00:00:00 1 60 4 [id number] 7 577 P Taking 06/21 00:00 :00 valACYclovi r HCl 500 MG Tablet 01/13/2023 00:00:00 1 60 4 [id number] 7 577 P Unknown Status 04/18 00:00 :00 valACYclovi r HCl 500 MG Tablet 01/13/2023 00:00:00 1 60 4 [id number] 7 577 P Taking 04/11 00:00 :00 Vitamin D 50 MCG (1999 UT) Tablet 06/15/2018 00:00:00 1 [id number] 3 200 P Taking 12/25 00:00 :00 Vitamin D 50 MCG (2000 UT) Tablet 06/15/2018 00:00:00 1 [id number] 3 200 P Taking 11/10 00:00 :00 Vitamin D 50 MCG (2000 UT) Tablet 06/15/2018 00:00:00 1 [id number] 3 200 P Taking 08/03 00:00 :00 Vitamin D 50 MCG (2000 UT) Tablet 06/15/2018 00:00:00 1 [id number] 3 200 P Taking 07/27 00:00 :00 Vitamin D 50 MCG (2000 UT) Tablet 06/15/2018 00:00:00 1 [id number] 3 200 P Taking 04/18 00:00 :00 Vitamin D 50 MCG (2000 UT) Tablet 06/15/2018 00:00:00 1 [id number] 3 200 P Taking
--- OUTSIDE RECORDS SUMMARY | 2025-05-15 13:11 | XMS_ITS | Clinical Summary ---
Author Organization [facility] Address [facility] [place] [address] Care Team Providers Care Shoe Cementer Name Role Phone Unavailable Primary Care Provider Unavailabl e Social History Tobacco Use Types Packs/Day Years Used Date Smoking Tobacco: Never Assessed Comments Unknown Sex and Gender Information Value Date Recorded Sex Assigned at Not on file Legal Sex Female 8:43 PM EDT Gender Identity Not on file Sexual Orientation Not on file Plan of Treatment Health Maintenance Due Date Last Done Comments Hepatitis C Screening 1954 DTap,Tdap,and Td (1 - Tdap) 1965 Mammogram Screening 1994 Colonoscopy 1999 Pneumococcal 50+ (1 of 1 - PCV) 2004 Shingrix (#1) 2004 DEXA Scan 2019 Influenza Vaccine (#1) 2025 RSV Vaccine (60+ or ) (1 - 1-dose 75+ series) 2029 HPV Aged Out No longer eligi ble based on patient's age to complete this topic Meningococcal conjugate rosangela nt 4 (MCV4) Aged Out No longer eligible b ased on patient's age to complete this topic RSV Immunization (<20 months) Aged Out No longer eligible based on patient's age to complete this topic
--- OUTSIDE RECORDS SUMMARY | 2025-05-15 13:11 | XMS_ITS | Referral Summary ---
Author Organization [facility] Address [address] [place] [address] [place] [address] Care Team Providers Care Uncrater Name Role Phone Unavailable Primary Care Provider Unavailabl e Social History Tobacco Use Types Packs/Day Years Used Date Smoking Tobacco: Never Assessed Comments Unknown Sex and Gender Information Value Date Recorded Sex Assigned at Not on file Legal Sex Female 8:43 PM EDT Gender Identity Not on file Sexual Orientation Not on file Plan of Treatment Not on file
--- NOTE | 2025-05-15 13:43 | MM_ITS ---
PROCEDURE INFORMATION: Exam: MG Bilateral Screening 3D Mammography Exam date and time: 05/15/2025 1:43 PM Age: 69 years old Clinical indication: Screening examination TECHNIQUE: Imaging protocol: Bilateral Screening tomosynthesis and 2D mammography including computer-aided detection (CAD) when performed. COMPARISON: 1. MG MM DIG SCREENING MAMM BI W/CAD 04/05/2024 9:58 AM 2. MG MM DIG SCREENING MAMM BI W/CAD 02/18/2023 12:57 PM FINDINGS: MAMMOGRAPHY: Breast composition: There are scattered areas of fibroglandular density. Mass: No suspicious masses. Architectural distortion: None. Calcifications: No suspicious calcifications. Asymmetric density: None. Skin thickening: None. Axillary adenopathy: None. IMPRESSION: No mammographic evidence of malignancy. Annual screening is recommended unless otherwise clinically indicated. ASSESSMENT: BI-RADS Category 1: Negative.
== END 2025-05-15 23:59 | disposition home or self-care (01) ==
LOC: RAD 13:06
PROVIDERS: PCP Family Medicine; Visit Provider Family Medicine
DX: Z12.31 Encounter for screening mammogram for malignant neoplasm of breast (principal); R92.323 Mammographic fibroglandular density, bilateral breasts
CPT/HCPCS: 77063; 77067